=== PATIENT | female | born 1995 ===

== ENCOUNTER 2022-06-18 12:35 | Emergency (ER) | payer SELFPAY ==
[2022-06-18] MEDS ORDERED: Ibuprofen 800 MG TAB ONE (13:00)
== END 2022-06-18 13:07 | disposition home or self-care (01) ==
LOC: ERS 12:35
DX: S00.83XA Contusion of other part of head, initial encounter (principal); Y04.8XXA Assault by other bodily force, initial encounter
CPT/HCPCS: 99284